=== PATIENT | male | born 1950 | race Caucasian/White ===

== ENCOUNTER 2016-09-08 12:11 | Day surgery (SDC) | payer MEDICARE ==
[2016-09-08] MEDS ORDERED: NS 0.9% 1000 ML* 1,000 ML IV ONE ×2 (12:46→18:44)
[2016-09-08 13:03] LABS: Hematocrit 44 % (42-52); Hemoglobin 14.7 g/dl (14.0-18.0); Mean Corpuscular HGB Conc 33 g/dl (31-36); Mean Corpuscular Hemoglobin 32 pg (27-31); Mean Corpuscular Volume 96 fL (80-94); Mean Platelet Volume 9 um3 (7.4-10.4); Red Blood Count 4.58 10^6/ul (4.0-5.4); Red Cell Distribution Width 14 % (10.5-15); White Blood Count 6.1 10^3/ul (3.5-10.8)
[2016-09-08 13:17] LABS: BUN/Creatinine Ratio 10.7 (8-20); C Reactive Protein 22.68 mg/L (< 5.00); Calcium 9.1 mg/dL (8.6-10.3); EGFR African American 93.2 (>60); EGFR Non-African American 72.5 (>60); Globulin 3.2 g/dL (2-4); Potassium 3.8 mmol/L (3.5-5.0); Total Bilirubin 0.6 mg/dL (0.2-1.0); Total Protein 7.2 g/dL (6.4-8.9)
[2016-09-08 13:41] LABS: Urine Bacteria Absent (Absent); Urine Bilirubin Negative (Negative); Urine Glucose Negative (Negative); Urine Nitrite Negative (Negative)
[2016-09-08] MEDS ORDERED: Ondansetron INJ* 2 MG/ML VIAL IV ONE ×2 (13:57→18:42)
[2016-09-08] MEDS ORDERED: HYDROmorphone* 1 MG/ML 1 ML SYR IV ONE ×2 (13:57→18:42)
[2016-09-08] MEDS ORDERED: Iohexol 300* (CONTRAST) 10 ML SDV IV ONE (14:51)
--- NOTE | 2016-09-08 16:49 | RAD ---
INDICATION: RIGHT lower quadrant pain 2 days duration. Clinical concern for appendicitis. Remote history of urolithiasis with lithotripsy. COMPARISON: No relevant prior exams available on the [facility] PACS for comparison. TECHNIQUE: Multidetector CT images were obtained from the lung bases to the ischial tuberosities with 101 mL Omnipaque 300 IV and oral contrast. Multiplanar reformation. REPORT: Minimal bibasilar dependent atelectasis. Decreased density of the liver relative to the spleen consistent with hepatosteatosis. No focal hepatic lesions or biliary dilatation evident. Negative for CT abnormality of the gallbladder, pancreas, spleen. Negative for CT abnormality of the upper GI, small bowel, or contrast opacified retrocecal appendix. Moderate colonic diverticulosis primarily at the descending and sigmoid colon without findings of acute diverticulitis. Trace RIGHT lower quadrant free fluid. Negative for free air. Small fat-containing umbilical hernia without inflammatory change. Normal adrenal glands. Moderately severe RIGHT hydroureteronephrosis is traced to a 8mm maximum dimension proximal RIGHT ureteral stone located approximate 5 cm distal to the ureteropelvic junction. Associated mildly delayed RIGHT nephrogram and pyelogram. Mild inflammatory change at the perinephric and periureteral fat. No additional RIGHT or LEFT urolithiasis. Negative for focal renal lesions. Unremarkable LEFT ureter and urinary bladder. Unremarkable visualized male urogenital structures. Negative for lymphadenopathy. Mild to moderate atherosclerotic plaque of normal diameter abdominal aorta and common iliac arteries. Physiologic distention of the IVC. Reactive endplate sclerosis secondary to degenerative spondylosis most prominent at the lower thoracic spine. Bilateral L5 spondylolysis with associated grade 1 L5-S1 anterolisthesis. Grade 1 degenerative L4-L5 retrolisthesis. Negative for suspicious focal osseous lesions. IMPRESSION: 1. Moderately severe RIGHT hydroureteronephrosis is traced to a 8 mm maximum dimension proximal RIGHT ureteral stone located 5 cm distal to the ureteropelvic junction. Associated mildly delayed RIGHT nephrogram and pyelogram. Associated mild perienteric nephric and periureteral inflammatory change and small volume of free fluid in the RIGHT lower quadrant. 2. Normal appendix documented. Results discussed with Dr. Botello 09/08/2016 4:45 PM EDT
[2016-09-08] MEDS ORDERED: oxyCODONE/Acetamin 5/325 MG* TAB PO ONE (18:35)
[2016-09-08] MEDS ORDERED: Ondansetron ODT TAB* 4 MG PO ONE (18:35)
[2016-09-08] MEDS ORDERED: Tamsulosin CAP* 0.4 MG PO ONE (18:39)
--- NOTE | 2016-09-08 18:53 | ED ---
Isaak Garg Benjamin, scribed for Brian Botello MD on 09/08/16 at 1322 . Abdominal Pain/Male - HPI Summary HPI Summary: 66yo male comes from Dr. Ledesma office for abdominal pain that woke him up today. Pt had RLQ pain since yesterday, and today also reports nausea and chills. Pt had a physical exam done this Tuesday and received some immunization shots. Pt had s small meal this morning without any problem. Yesterday, pt took Percocet he had for another problem and it helped with his pain but pain returned this morning. Hx of hyperlipidemia. Pt is also on anti-depressant now as he is under a lot of stress lately. - History of Current Complaint Chief Complaint: EDAbdPain Stated Complaint: ABD PAIN Time Seen by Provider: 09/08/16 12:33 Hx Obtained From: Patient Onset/Duration: Sudden Onset, Lasting Days - 2 days, Still Present Timing: Constant Severity Initially: Moderate Severity Currently: Moderate Pain Intensity: 8 Pain Scale Used: 0-10 Numeric Location: Discrete At: RLQ Radiates: No Aggravating Factor(s): Other: - palpation Alleviating Factor(s): Nothing Associated Signs And Symptoms: Positive: Nausea, Other - chills - Allergies/Home Medications Allergies/Adverse Reactions: Allergies Allergy/AdvReac Type Severity Reaction Status Date / Time Aspirin Allergy Eyes Verified 05/05/15 10:43 Itchy/Swollen/Red/Watery Cephalexin [From Keflex] Allergy Rash Verified 05/05/15 10:44 Doxycycline Allergy Hives Verified 05/05/15 10:44 Ibuprofen Allergy Hives Verified 05/05/15 10:43 Home Medications: Home Medications Citalopram TAB* [CeleXA TAB*] 10 mg PO QAM 09/08/16 [History Confirmed 09/08/16] Eszopiclone (NF) [Lunesta (NF)] 3 mg PO BEDTIME 09/08/16 [History Confirmed ] Fluticasone NASAL SPRAY 50MCG* [Flonase NASAL SPRAY 50MCG*] 2 spray BOTH NARES BEDTIME 09/08/16 [History Confirmed 09/08/16] Ipratropium [place] (Nasal) [Ipratropium [place]] 0.06 % BOTH NARES TID PRN [History Confirmed 09/08/16] Simvastatin TAB(NF) [Zocor(NF)] 10 mg PO DAILY 09/08/16 [History Confirmed 09/08] oxyCODONE/Acetamin 5/325 MG* [Percocet 5/325 TAB*] 1 tab PO Q6H PRN 09/08/16 [ History Confirmed 09/08/16] PMH/Surg Hx/FS Hx/Imm Hx Cardiovascular History: Reports: Hx Hypercholesterolemia Infectious Disease History: Denies: Traveled Outside the [place] in Last 30 Days - Family History Known Family History: Positive: None Negative: Cardiac Disease, Hypertension, Diabetes - Social History Occupation: Employed Full-time Lives: With Family Alcohol Use: Rare Substance Use Type: Reports: None Smoking Status (MU): Never Smoked Tobacco Review of Systems Constitutional: Negative Positive: Chills Eyes: Negative ENT: Negative Cardiovascular: Negative Respiratory: Negative Positive: Abdominal Pain - RLQ, Nausea Genitourinary: Negative Musculoskeletal: Negative Skin: Negative Neurological: Negative Psychological: Normal All Other Systems Reviewed And Are Negative: Yes Physical Exam Triage Information Reviewed: Yes Vital Signs On Initial Exam: Initial Vitals Temp Pulse Resp BP Pulse Ox 98.7 F 70 20 184/114 99 09/08/16 12:21 09/08/16 12:21 09/08/16 12:21 09/08/16 12:21 09/08/16 12:21 Vital Signs Reviewed: Yes Appearance: Positive: Well-Appearing, Well-Nourished, Pain Distress - mild Skin: Positive: Warm, Skin Color Reflects Adequate Perfusion, Dry Head/Face: Positive: Normal Head/Face Inspection Eyes: Positive: Normal ENT: Positive: Normal ENT inspection Neck: Positive: Supple, Nontender Respiratory/Lung Sounds: Positive: Clear to Auscultation, Breath Sounds Present Cardiovascular: Positive: RRR Abdomen Description: Positive: No Organomegaly, Soft, McBurney's Point Tenderness. Negative: Distended, Guarding Bowel Sounds: Positive: Present Musculoskeletal: Positive: Normal, Strength/ROM Intact Neurological: Positive: Normal, Sensory/Motor Intact, Alert, Oriented to Person Place, Time, CN Intact II-III Psychiatric: Positive: Affect/Mood Appropriate Diagnostics - Vital Signs Vital Signs Temp Pulse Resp BP Pulse Ox 09/08/16 12:21 98.7 F 70 20 184/114 99 - Laboratory Lab Results: Lab Results 09/08/16 09/08/16 09/08/16 Range/Units 12:47 12:47 12:47 WBC 6.1 (3.5-10.8) 10^3/ul RBC 4.58 (4.0-5.4) 10^6/ul Hgb 14.7 (14.0-18.0) g/dl Hct 44 (42-52) % MCV 96 H (80-94) fL MCH 32 H (27-31) pg MCHC 33 (31-36) g/dl RDW 14 (10.5-15) % Plt Count 184 (150-450) 10^3/ul MPV 9 (7.4-10.4) um3 Neut % (Auto) 79.7 (38-83) % Lymph % (Auto) 12.4 L (25-47) % [place] % (Auto) 6.2 (1-9) % Eos % (Auto) 1.3 (0-6) % Baso % (Auto) 0.4 (0-2) % Absolute Neuts (auto) 4.9 (1.5-7.7) 10^3/ul Absolute Lymphs (auto) 0.8 L (1.0-4.8) 10^3/ul Absolute Monos (auto) 0.4 (0-0.8) 10^3/ul Absolute Eos (auto) 0.1 (0-0.6) 10^3/ul Absolute Basos (auto) 0 (0-0.2) 10^3/ul Absolute Nucleated RBC 0 10^3/ul Nucleated RBC % 0 Sodium 137 (133-145) mmol/L Potassium 3.8 (3.5-5.0) mmol/L Chloride 101 (101-111) mmol/L Carbon Dioxide 26 (22-32) mmol/L Anion Gap 10 (2-11) mmol/L BUN 11 (6-24) mg/dL Creatinine 1.03 (0.67-1.17) mg/dL Est GFR ( Amer) 93.2 (>60) Est GFR (Non-Af Amer) 72.5 (>60) BUN/Creatinine Ratio 10.7 (8-20) Glucose 108 H (70-100) mg/dL Lactic Acid 1.1 (0.5-2.0) mmol/L Calcium 9.1 (8.6-10.3) mg/dL Total Bilirubin 0.60 (0.2-1.0) mg/dL AST 25 (13-39) U/L ALT 23 (7-52) U/L Alkaline Phosphatase 46 (34-104) U/L C-Reactive Protein 22.68 H (< 5.00) mg/L Total Protein 7.2 (6.4-8.9) g/dL Albumin 4.0 (3.2-5.2) g/dL Globulin 3.2 (2-4) g/dL Albumin/Globulin Ratio 1.3 (1-3) Lipase 23 (11.0-82.0) U/L Urine Color Urine Appearance Urine pH (5-9) Ur Specific Barto (1.010-1.030) Urine Protein (Negative) Urine Ketones (Negative) Urine Blood (Negative) Urine Nitrate (Negative) Urine Bilirubin (Negative) Urine Urobilinogen (Negative) Ur Leukocyte Esterase (Negative) Urine WBC (Auto) (Absent) Urine RBC (Auto) (Absent) Urine Bacteria (Absent) Urine Glucose (Negative) 09/08/16 Range/Units 13:20 WBC (3.5-10.8) 10^3/ul RBC (4.0-5.4) 10^6/ul Hgb (14.0-18.0) g/dl Hct (42-52) % MCV (80-94) fL MCH (27-31) pg MCHC (31-36) g/dl RDW (10.5-15) % Plt Count (150-450) 10^3/ul MPV (7.4-10.4) um3 Neut % (Auto) (38-83) % Lymph % (Auto) (25-47) % [place] % (Auto) (1-9) % Eos % (Auto) (0-6) % Baso % (Auto) (0-2) % Absolute Neuts (auto) (1.5-7.7) 10^3/ul Absolute Lymphs (auto) (1.0-4.8) 10^3/ul Absolute Monos (auto) (0-0.8) 10^3/ul Absolute Eos (auto) (0-0.6) 10^3/ul Absolute Basos (auto) (0-0.2) 10^3/ul Absolute Nucleated RBC 10^3/ul Nucleated RBC % Sodium (133-145) mmol/L Potassium (3.5-5.0) mmol/L Chloride (101-111) mmol/L Carbon Dioxide (22-32) mmol/L Anion Gap (2-11) mmol/L BUN (6-24) mg/dL Creatinine (0.67-1.17) mg/dL Est GFR ( Amer) (>60) Est GFR (Non-Af Amer) (>60) BUN/Creatinine Ratio (8-20) Glucose (70-100) mg/dL Lactic Acid (0.5-2.0) mmol/L Calcium (8.6-10.3) mg/dL Total Bilirubin (0.2-1.0) mg/dL AST (13-39) U/L ALT (7-52) U/L Alkaline Phosphatase (34-104) U/L C-Reactive Protein (< 5.00) mg/L Total Protein (6.4-8.9) g/dL Albumin (3.2-5.2) g/dL Globulin (2-4) g/dL Albumin/Globulin Ratio (1-3) Lipase (11.0-82.0) U/L Urine Color Yellow Urine Appearance Clear Urine pH 7.0 (5-9) Ur Specific Barto 1.008 L (1.010-1.030) Urine Protein Negative (Negative) Urine Ketones 1+ H (Negative) Urine Blood 2+ H (Negative) Urine Nitrate Negative (Negative) Urine Bilirubin Negative (Negative) Urine Urobilinogen Negative (Negative) Ur Leukocyte Esterase Negative (Negative) Urine WBC (Auto) Trace(0-5/hpf) (Absent) Urine RBC (Auto) Trace(0-2/hpf) (Absent) Urine Bacteria Absent (Absent) Urine Glucose Negative (Negative) Result Diagrams: 09/08/16 12:47 09/08/16 12:47 Lab Statement: Any lab studies that have been ordered have been reviewed, and results considered in the medical decision making process. - CT CT A/P W CT Interpretation: Positive (See Comments) - IMPRESSION: 1. Moderately severe RIGHT hydroureteronephrosis is traced to a 8 mm maximum dimension proximal RIGHT ureteral stone located 5 cm distal to the ureteropelvic junction. Associated mildly delayed RIGHT nephrogram and pyelogram. Associated mild perienteric nephric and periureteral inflammatory change and small volume of free fluid in the RIGHT lower quadrant. 2. Normal appendix documented. CT Interpretation Completed By: Radiologist Abdominal Pain Fem Course/Dx - Course Course Of Treatment: Discussed with Dr. Chow (urology) at 1832. Assessment/Plan: Mr. Rhodes came in with RLQ pain for about 24 hours accompanied by nausea. He was found to have a large proximal right ureteral stone with moderate to severe hydronephrosis and admitted to the hospitalist service after consultation with Dr. Chow. His urine was clear and he had no leukocytosis or fever. - Diagnoses Provider Diagnoses: Kidney stone on right side Discharge - Discharge Plan Condition: Stable Disposition: ADMITTED TO [facility] The documentation as recorded by the Isaak he Benjamin accurately reflects the service I personally performed and the decisions made by , Brian Botello MD.
[2016-09-08] MEDS ORDERED: Levofloxacin 750 MG IVPREMIX(* 750 MG/150 ML BAG ONE (19:36)
[2016-09-08] MEDS ORDERED: Iohexol 180 (CONTRAST) 10 ML SDV IV ONE (19:46)
[2016-09-08] MEDS ORDERED: Midazolam* 1 MG/ML 5 ML VIAL (5 MG) ONE (19:58)
[2016-09-08] MEDS ORDERED: fentaNYL* 50 MCG/ML 2 ML VIAL (100 MCG VIAL) ONE (20:01)
[2016-09-08] MEDS ORDERED: oxyCODONE TAB* 5 MG TAB PO PRN (20:29)
[2016-09-08] MEDS ORDERED: HYDROcodone/ACETAMIN 5-325 MG* 1 TAB PO PRN (20:29)
[2016-09-08] MEDS ORDERED: fentaNYL* 50 MCG/ML 2 ML VIAL (100 MCG VIAL) IV PRN (20:29)
[2016-09-08] MEDS ORDERED: Ondansetron INJ* 2 MG/ML VIAL IV PRN (20:29)
[2016-09-08] MEDS ORDERED: HYDROmorphone* 1 MG/ML 1 ML SYR IV PRN (20:29)
--- NOTE | 2016-09-08 21:03 | RAD ---
INDICATION: RIGHT retrograde pyelogram and ureteral stent placement. Obstructive uropathy secondary to ureteral stone. COMPARISON: CT of the same date. TECHNIQUE: 11 seconds fluoroscopy. FINDINGS: Retrograde pyelogram documents moderate calyceal blunting. Ureteral stent placed. IMPRESSION: Procedural fluoroscopy. CPT II Codes: 6045F
[2016-09-08 21:26] VITALS: BP 126/82
--- NOTE | 2016-09-09 11:03 | OP ---
CC: Dr. Shannon * DATE OF OPERATION: 09/08/16 - [facility] DATE OF : 52 SURGEON: Triston Chow MD ANESTHESIOLOGIST: Ernesto Shaikh MD ANESTHESIA: General. PRE-OP DIAGNOSIS: Proximal right ureteral calculus (8 mm). POST-OP DIAGNOSIS: Proximal right ureteral calculus (8 mm). OPERATIVE PROCEDURE: 1. Cystoscopy. 2. Right retrograde pyelography and placement of right ureteral stent (6-Albanian ). INDICATIONS: Mr. Rhodes is a 66-year-old white male who has past history of renal calculus disease and who presented to the emergency room today with two days of history of recurrent episodes of right flank pain. CT of the abdomen and pelvis with IV and oral contrast showed an 8 mm obstructing calculus about 4 to 5 cm distal to the ureteropelvic junction. Because of the above history and findings and the associated pain, the above procedure was advised and accepted. PATHOLOGY AT CYSTOSCOPY: The penile and bulbar urethrae looked normal. The prostatic urethra measured about 2.5 cm in length and there was only mild-to- moderate prostate enlargement and obstruction. Examination of the bladder showed normal trigone and a single ureteral orifice on each side. The bladder mucosa looked normal. There were no suspicious bladder lesions seen. On fluoroscopy, the whole right kidney and the area of the right ureter were obscured by the presence of the oral contrast in the Rt colon. At the time of placement of the guidewire, resistance was encountered in the proximal ureter and a calcification was noted at that level. The calcification seemed to have migrated proximally with the guidewire placement. Retrograde pyelography showed moderate hydronephrosis. Because the stone was fellt to have migrated proximally, it was decided to place a stent only and not to proceed with the ureteroscopy. DESCRIPTION OF PROCEDURE: After successful general anesthesia, the patient was placed in the lithotomy position and was prepped and draped in the usual manner. Cystoscopy was performed. The bladder was inspected and above findings were noted. A flexible-tip guidewire was then introduced into the right orifice. Resistance was encountered in the proximal ureter and after several attempts, the guidewire was successfully introduced inside the area of the collecting system. An open- ended catheter was then fed up above the guidewire and retrograde pyelography was performed demonstrating the collecting system. A size 6-Albanian stent was then placed with the proximal end coiling in the renal pelvis and the distal end coiling inside the bladder. The patient tolerated the procedure well and left the operating room in good condition. The plan is to obtain a KUB after the oral contrast has passed from his colon. Would decide then on the definitive treatment of the stone. [id number]/CPS #: [id number] MTDD
== END 2016-09-08 21:40 | disposition home or self-care (01) ==
LOC: ED 12:11 → OR 19:57
PROVIDERS: ATTEND Internal Medicine
DX: N13.2 Hydronephrosis with renal and ureteral calculous obstruction (principal); R10.31 Right lower quadrant pain; E78.00 Pure hypercholesterolemia, unspecified
CPT/HCPCS: 36415; 74177; 74420; 80053; 81003; 81015; 83605; 83690; 85025; 86140; 96374; 96375; 99285; A9270-GY; C1876; J1170; J2250; J2405; J3010; Q9967

== ENCOUNTER 2016-09-13 13:57 | Day surgery (SDC) | payer MEDICARE ==
--- NOTE | 2016-09-09 21:56 | HP ---
CC: Varun Shannon MD * ADMITTING HISTORY AND PHYSICAL: DATE OF ADMISSION: 09/13/16 SURGEON: Dr. Florence. ADMITTING DIAGNOSIS: Calculus, right ureter. PLANNED PROCEDURE: Shockwave lithotripsy of calculus, right ureter. HISTORY OF PRESENT ILLNESS: Milton Rhodes is a 66-year-old gentleman who had undergone urgent right stent insertion on 09/08/16 because of an obstructing calculus in the right proximal ureter. He is now being brought in for lithotripsy. PAST MEDICAL HISTORY: Significant for: 1. High cholesterol. 2. Depression. MEDICATIONS ON ADMISSION: 1. Zocor 10 mg daily. 2. Celexa 10 mg daily. 3. Lunesta p.r.n. ALLERGIES AND INTOLERANCES: 1. CEPHALOSPORINS (rash). 2. ASPIRIN (swollen eyes). 3. DOXYCYCLINE (hives). 4. IBUPROFEN (hives). REVIEW OF SYSTEMS: He denies any chest pain or shortness of breath. There is no history of diabetes mellitus or any other major systemic illness. PHYSICAL EXAMINATION GENERAL: Reveals a pleasant, middle-aged gentleman. VITAL SIGNS: Blood pressure is 128/82, pulse 77 per minute, oxygen saturation 98% on room air. LUNGS: Clear bilaterally. CARDIOVASCULAR: Regular rate and rhythm. S1, S2. ABDOMEN: Soft with mild right flank tenderness. IMPRESSION: A 66-year-old gentleman status post urgent right stent insertion who is now being brought in for shock-wave lithotripsy of a calculus in the right proximal to midureter. [id number] #: [id number] MTDD
[~2016-09-13 13:57] MED LIST: Buffered Lidocaine 0.9% SYRIN* 5 ML/SYR SYRINGE INTRADERM ONE; Dexamethasone IV* 4 MG/ML 1 ML (4 MG) IV SLOW PU ONE; Famotidine IV* 10 MG/ML 2 ML (20 mg) IV ONE
[2016-09-13] MEDS ORDERED: Dexamethasone IV* 4 MG/ML 1 ML (4 MG) ONE (14:38)
[2016-09-13] MEDS ORDERED: Famotidine IV* 10 MG/ML 2 ML (20 mg) ONE (14:38)
[2016-09-13] MEDS ORDERED: Levofloxacin 500 MG IVPREMIX(* 500 MG/100 ML BAG IVPB ONE (14:39)
[2016-09-13] MEDS ORDERED: Buffered Lidocaine 0.9% SYRIN* 5 ML/SYR SYRINGE ONE (14:39)
--- NOTE | 2016-09-13 14:51 | RAD ---
Indication: Renal calculi Plane film of the abdomen demonstrates right ureteral stent in place. Small calcifications are noted in the left kidney. No dilated loops of bowel are noted. IMPRESSION: Right ureteral stent. Calcifications in the left kidney.
[2016-09-13] MEDS ORDERED: Midazolam* 1 MG/ML 5 ML VIAL (5 MG) ONE (17:38)
[2016-09-13] MEDS ORDERED: Propofol* 10 MG/ML 20 ML BTL IV PUSH ONE (17:54)
[2016-09-13] MEDS ORDERED: Ondansetron INJ* 2 MG/ML VIAL ONE (17:54)
[2016-09-13] MEDS ORDERED: Lidocaine 2% PF * 5 ML VIAL ONE (17:54)
[2016-09-13] MEDS ORDERED: fentaNYL* 50 MCG/ML 5 ML VIAL (250 MCG VIAL) ONE (17:55)
[2016-09-13] MEDS ORDERED: oxyCODONE/Acetamin 5/325 MG* TAB PO PRN (18:18)
[2016-09-13] MEDS ORDERED: DiMENhydriNATE IV* 50 MG/ML VIAL IV PUSH PRN (18:18)
[2016-09-13] MEDS ORDERED: Ondansetron INJ* 2 MG/ML VIAL IV PRN (18:18)
[2016-09-13] MEDS ORDERED: fentaNYL* 50 MCG/ML 2 ML VIAL (100 MCG VIAL) IV PRN (18:18)
[2016-09-13 19:30] VITALS: BP 123/74
--- NOTE | 2016-09-13 20:17 | RAD ---
INDICATION: Right-sided nephrolithiasis. Right ureteral stent COMPARISON: September 13, 2016 TECHNIQUE: A single view of the abdomen is submitted. FINDINGS: Bones: There are no acute bony findings. Soft tissues: The soft tissues appear normal. The psoas margins are sharp. Bowel gas pattern: Normal Calcifications: There is left-sided nephrolithiasis. There is a right ureteral stent with a proximal right ureteral calculus measuring 7 mm, unchanged. Other: There are radiodensities from colonic diverticula IMPRESSION: LEFT-SIDED NEPHROLITHIASIS. RIGHT URETERAL STENT WITH RIGHT URETERAL CALCULUS, UNCHANGED
--- NOTE | 2016-09-14 17:24 | OP ---
CC: Dr. Varun Shannon * DATE OF OPERATION: 09/13/16 - [facility] DATE OF : 52 SURGEON: Elan Florence MD ANESTHESIOLOGIST: Dr. Sung ANESTHESIA: General. PRE-OP DIAGNOSIS: Calculus, right proximal ureter. POST-OP DIAGNOSIS: Calculus, right proximal ureter. OPERATIVE PROCEDURE: Shockwave lithotripsy of calculus, right ureter. INDICATIONS: Milton Rhodes is a 66-year-old gentleman, who had undergone urgent stent insertion for an obstructing right proximal ureteral calculus. He is now being brought in for lithotripsy. COMPLICATIONS: None. POSTOPERATIVE CONDITION: Stable. DESCRIPTION OF PROCEDURE: After induction of general anesthesia, the patient was placed on the lithotripsy table in supine position. The calculus in the proximal right ureter was visualized using fluoroscopy and shockwave lithotripsy was commenced at a rate of 90 shocks per minute. Periodic imaging revealed good localization and fragmentation and a total of 2000 shocks were administered. The patient tolerated the procedure satisfactorily and was transferred back to the recovery area in stable condition. The plan is to obtain a postoperative x-ray to assess the true degree of fragmentation prior to stent removal. [id number] #: [id number] MTDD
== END 2016-09-13 19:43 | disposition home or self-care (01) ==
LOC: OR 13:57
PROVIDERS: ATTEND Urology
DX: N20.1 Calculus of ureter (principal); E78.00 Pure hypercholesterolemia, unspecified; Z87.891 Personal history of nicotine dependence
CPT/HCPCS: 74000; J1100; J1956; J2250; J2405; J2704; J3010

== ENCOUNTER 2018-11-21 08:57 | Day surgery (SDC) | payer MEDICARE ==
[~2018-11-21 08:57] MED LIST changes: +Acetaminophen TAB* 325 MG PO PRN; -Buffered Lidocaine 0.9% SYRIN* 5 ML/SYR SYRINGE INTRADERM ONE; +Buffered Lidocaine 1% SYRIN* 1 ML/SYRINGE INTRADERM ONE; +Cyclopentolate 1% OPTH.SOL* 2 ML BTL ONE; -Dexamethasone IV* 4 MG/ML 1 ML (4 MG) IV SLOW PU ONE; -Famotidine IV* 10 MG/ML 2 ML (20 mg) IV ONE; +Ketorolac 0.5% OPHTH (NF) 0.5 % 5 ML BTL ONE; +Lidocaine 1% MPF ** 5 ML VIAL ONE; +Neomycin/Polymy/Dex OPHTH.OIN* 3.5 GM ONE; +Phenylephrine OPHTH SOL 2.5%* 2 ML ONE; +Tetracaine 0.5% OPTH.SOL 4 ML* 1 DROP BTL ONE; +Tropicamide 1% OPTH.SOL* BTL ONE
[2018-11-21] MEDS ORDERED: fentaNYL* 50 MCG/ML 2 ML VIAL (100 MCG VIAL) ONE (10:02)
[2018-11-21] MEDS ORDERED: Midazolam* 1 MG/ML 2 ML VIAL (2 MG) ONE ×2 (10:02→10:31)
[2018-11-21 11:29] VITALS: BP 134/83
--- NOTE | 2018-11-21 15:07 | OP ---
DATE OF OPERATION/DATE OF DICTATION: 11/21/2018 - [facility] DATE OF : 1950. SURGEON: Dr. Clark Wheatley. CLAY STAIN MIXER: None. ANESTHESIA: Topical with intravenous sedation. PRE-OP DIAGNOSIS: Cataract, left eye. POST-OP DIAGNOSIS: Cataract, left eye. OPERATIVE PROCEDURE: Phacoemulsification and cataract extraction with posterior chamber intraocular lens implant, left eye. COMPLICATIONS: None. BLOOD LOSS: None. DESCRIPTION OF PROCEDURE: The patient was brought to the operating room and received a small amount of intravenous sedation. A drop of Tetracaine was placed in his left eye. He was prepped and draped in the usual sterile fashion for ophthalmic surgery and attention was directed to the left eye where a speculum was placed. A paracentesis was created at the 5 o'clock position and 0.1 cc of 1 percent preservative-free Lidocaine was injected into the anterior chamber followed by DisCoVisc. The eye was digitally stabilized while a 2.75 mm keratome was used to create a triplanar clear corneal incision at the 3 o' clock position. A continuous curvilinear capsulorrhexis was created with a cystotome and Utrata forceps. BSS on a cannula was used to hydrodissect the lens from the capsule. Phacoemulsification was performed in a divide-and- conquer technique to create four fragments which were removed. Residual cortical material was removed with irrigation and aspiration. DisCoVisc was used to inflate the capsular bag and an AUOOTO 21.5 diopter lens was folded and inserted into the capsular bag. DisCoVisc was removed using irrigation and aspiration. BSS on a cannula was used to hydrate the corneal stroma and seal the wound. At the end of the case the pupil was round and the lens was centered. The eye was of normal pressure and the wound was water tight. The speculum was removed and topical Maxitrol ointment was placed on the surface of the eye. The eye was closed, patched and shielded and the patient was sent to the recovery room in stable condition with post operative instructions and follow-up appointment given. [id number] #: [id number] MTDD
== END 2018-11-21 11:12 | disposition home or self-care (01) ==
LOC: OREAST 08:57
PROVIDERS: ATTEND Ophthalmology
DX: H25.12 Age-related nuclear cataract, left eye (principal); E78.00 Pure hypercholesterolemia, unspecified; Z87.891 Personal history of nicotine dependence; G89.29 Other chronic pain; Z79.891 Long term (current) use of opiate analgesic; Z87.442 Personal history of urinary calculi; M10.9 Gout, unspecified
CPT/HCPCS: A9270-GY; J2250; J3010; V2632